=== PATIENT | female | born 1985 | race Caucasian/White ===

== ENCOUNTER 2018-02-28 12:11 | Outpatient (CLI) | payer BC, SELFPAY ==
[2018-02-28 12:38] VITALS: BMI 47.9
[2018-02-28 13:09] LABS: Hematocrit 36.6 % (37-47); Hemoglobin 11.7 g/dl (12.0-15.0); Mean Corpuscular Hgb 25.1 pg (27.0-32.0); Mean Corpuscular Volume 78.5 fL (81-99); Mean Platelet Vol. 10.5 fl (6.2-12.0); Platelet Count 231 K/mm3 (150-450); RBC Distribution Width CV 14.4 % (11.6-14.6); RBC Distribution Width SD 40.3 fl (35.1-43.9); Red Blood Count 4.66 M/mm3 (4.2-5.4); White Blood Count 11.2 K/mm3 (4.4-11.0)
[2018-02-28 13:11] LABS: Scan Indicated on CBC? Y/N NO
[2018-02-28 13:18] LABS: Partial Thromboplast Time 31.8 Seconds (24.1-36.2); Prothrombin Time (Protime)PT. 13.1 SECONDS (11.7-14.9)
[2018-02-28 13:20] LABS: AST(SGOT) 14 U/L (15-37); Alanine Aminotransfer ALT/SGPT 14 U/L (13-56); Creatinine, Serum 0.72 mg/dL (0.55-1.02); EST Glomerular Filtration Rate 99 mL/min (>60); Est Glom Filt Rate - Afr Amer 120 mL/min (>60); Uric Acid 5.8 mg/dL (2.6-6.0)
--- NOTE | 2018-02-28 13:24 | OB.TRI.NOTE ---
History of Present Illness Date of Service: 02/28/18 Was patient seen by the physician?: Yes Reason For Visit: R/O PIH Date of Service: 02/28/18 Gestational age: 32 Home Medications Medication Instructions Recorded Aspirin, Baby 81 mg PO DAILY 02/28/18 Famotidine [Pepcid] 20 mg PO 02/28/18 Labetalol [Trandate] 100 mg PO BID 02/28/18 Zoloft 50 mg PO DAILY 02/28/18 Allergies No Known Allergies Allergy (Verified 02/28/18 13:03) Physical Exam General: Alert, Oriented x3 Abdomen: Soft, Non Tender NST - FHR Rate Baby A Baseline: 140 Variability:: Moderate Accelerations:: 15 x 15 Decelerations:: None NST Reactive:: Yes FHR Category:: Category I Uterine Activity:: no ctx Impression/Plan 32yo with Chronic HTN, R/o Superimposed PRE E 1) PRE E LABS today 2) 24 hr urine protein 3) increase labetalol to 200mg BID 4) Weekly NSTs and BPP 5) Likely dc home today if labs stable 6) Celestone today and repeat in 24 hrs 7) S/Sx of pre E reviewed 8) Home BP monitoring- parameters reviewed
[2018-02-28] MEDS: Betamethasone/Betamethasone 30 MG/5 ML Vial 12 MG IM (13:35)
[2018-02-28] MEDS: Labetalol 100 MG Tablet PO (13:36)
[2018-02-28 14:30] LABS: Protein:Creat Ratio 65 mg/g CRE (0-200)
[2018-03-29 19:03] LABS: 24HR. UA Prot. Total Volume 1000 mL; Urine Protein (24 Hour) 32.8 mg/dL (<11.9)
== END 2018-02-28 15:15 | disposition home or self-care (01) ==
LOC: WPOUT 12:35 → WP 12:37
PROVIDERS: Advanced Practice Midwife; Visit Provider Obstetrics & Gynecology
DX: O10.913 Unspecified pre-existing hypertension complicating pregnancy, third trimester (principal); Z3A.32 32 weeks gestation of pregnancy
CPT/HCPCS: 96372; 36415; 59025; 59050; 82565; 82570; 84156; 84450; 84460; 84550; 85027; 85610; 85730; 99218; G0378; J0702

== ENCOUNTER 2018-03-01 14:43 | Outpatient (CLI) | payer BC, SELFPAY ==
[2018-03-01 14:56] VITALS: BMI 48.2
[2018-03-01] MEDS: Betamethasone/Betamethasone 30 MG/5 ML Vial 12 MG IM (15:09)
--- NOTE | 2018-03-02 09:07 | OB.TRI.NOTE ---
History of Present Illness Date of Service: 03/01/18 Reason For Visit: CELESTONE SHOT Home Medications Medication Instructions Recorded Aspirin, Baby 81 mg PO DAILY 02/28/18 Famotidine [Pepcid] 10 mg PO DAILY PRN PRN 02/28/18 Labetalol [Trandate] 200 mg PO BID 02/28/18 Zoloft 50 mg PO DAILY 02/28/18 Allergies No Known Allergies Allergy (Verified 02/28/18 13:03) Impression/Plan 32yo with Gestational HTN, here for second dose of celestone celestone injection given dc home
--- NOTE | 2018-03-04 07:59 | OB.TRI.NOTE ---
History of Present Illness Date of Service: 03/01/18 Reason For Visit: CELESTONE SHOT Home Medications Medication Instructions Recorded Aspirin, Baby 81 mg PO DAILY 02/28/18 Famotidine [Pepcid] 10 mg PO DAILY PRN PRN 02/28/18 Labetalol [Trandate] 200 mg PO BID 02/28/18 Zoloft 50 mg PO DAILY 02/28/18 Pediatric Multivit Comb No.42 1 each PO DAILY 03/02/18 [Flintstones] Allergies No Known Allergies Allergy (Verified 03/02/18 14:52) Impression/Plan 32yo @ 32 weeks here for Second dose of celestone. celstone given dc home
[2018-03-04 08:24] LABS: 24HR. Urine Creatinine 1.98 g/24 HR (0.70-1.90)
[2018-03-04 08:31] LABS: 24 Hour Urine Protein 133.1 mg/24HR (<150 MG/24HR); 24HR. UA Prot. Total Volume 1100 mL; Urine Protein (24 Hour) 12.1 mg/dL (<11.9)
== END 2018-03-01 15:15 | disposition home or self-care (01) ==
LOC: WPOUT 14:46 → WP 14:47
PROVIDERS: Visit Provider Obstetrics & Gynecology
DX: Z34.90 Encounter for supervision of normal pregnancy, unspecified, unspecified trimester (principal)
CPT/HCPCS: 82570; 84156; 96372; 99218; G0378; J0702

== ENCOUNTER 2018-03-02 14:40 | Outpatient (CLI) | payer BC, SELFPAY ==
[2018-03-02 14:52] VITALS: BMI 48.5
--- NOTE | 2018-03-04 07:56 | OB.TRI.NOTE ---
History of Present Illness Date of Service: 03/02/18 Was patient seen by the physician?: No Reason For Visit: DECREASED MOVERMENT Date of Service: 03/02/18 Final CHRISTIAN: 04/25/18 Gestational age: 32 Weeks and 4 Days Home Medications Medication Instructions Recorded Aspirin, Baby 81 mg PO DAILY 02/28/18 Famotidine [Pepcid] 10 mg PO DAILY PRN PRN 02/28/18 Labetalol [Trandate] 200 mg PO BID 02/28/18 Zoloft 50 mg PO DAILY 02/28/18 Pediatric Multivit Comb No.42 1 each PO DAILY 03/02/18 [Flintstones] Allergies No Known Allergies Allergy (Verified 03/02/18 14:52) NST - FHR Rate Baby A Baseline: 115 Variability:: Moderate Accelerations:: 15 x 15 Decelerations:: Variable - had two variables, remaning tracing was category 1. NST Reactive:: Yes FHR Category:: Category I Uterine Activity:: no ctx
== END 2018-03-02 17:05 | disposition home or self-care (01) ==
LOC: WPOUT 14:43 → WP 03-03 14:47
PROVIDERS: Visit Provider Obstetrics & Gynecology
DX: O36.8130 Decreased fetal movements, third trimester, not applicable or unspecified (principal); Z3A.32 32 weeks gestation of pregnancy
CPT/HCPCS: 59025; 59050; 99218; G0378

== ENCOUNTER 2018-03-30 07:30 | Inpatient (IN) | payer BC, SELFPAY ==
[2018-03-29 22:27] VITALS: BMI 49.1
--- NOTE | 2018-03-29 22:38 | OB.TRI.PN ---
Progress Notes Date of Service: 03/29/18 Progress Note: Presented to unit
[2018-03-29] MEDS: Labetalol 200 MG Tablet PO (22:43)
--- NOTE | 2018-03-29 23:28 | OB.TRI.NOTE ---
History of Present Illness Date of Service: 03/29/18 Was patient seen by the physician?: Yes Reason For Visit: PRE E Date of Service: 03/29/18 Final CHRISTIAN: 04/25/18 Final CHRISTIAN Source: US <20 weeks Gestational age: 36 Weeks and 1 Days History of Present Illness: 32 year old female at 36w1d EGA by first trimester U/S. Patient presented to office visit on 03/29/18 with elevated BP upon arrival and then normal TruBP. Patient asymptomatic and completed pre-e labs and 24hr urine. Uric acid elevated at 6.8 and 24hr urine elevated at 328. Patient notified to present to unit for evaluation due to elevated 24hr urine protein and pre-eclampsia. Denies headache, scotoma, chest pain, shortness of breath, vaginal bleeding, leakage of fluid or abdominal pain. BP at home today 133/89. Last dose of Labetalol at 0930 this am. Home Medications Medication Instructions Recorded Aspirin, Baby 81 mg PO DAILY 02/28/18 Famotidine [Pepcid] 10 mg PO DAILY PRN PRN 02/28/18 Labetalol [Trandate] 200 mg PO BID 02/28/18 Zoloft 50 mg PO DAILY 02/28/18 Pediatric Multivit Comb No.42 1 each PO DAILY 03/02/18 [Flintstones] Allergies No Known Allergies Allergy (Verified 03/29/18 22:27) Physical Exam Vitals: FHT 125, moderate variability, accels, no decels. TOCO: None General: Alert, Oriented x3, No apparent distress Cardiovascular: Regular rate, Regular Rhythm, No murmurs Lungs: Clear to auscultation, Normal air movement, No rhonchi, No wheeze Abdomen: Non Tender, - - No RUQ pain Extremities:: No edema, Deep tendon reflexes - +2/4 bilateral patellar, Other - Clonus negative NST - FHR Rate Baby A Baseline: 125 Variability:: Moderate Accelerations:: 15 x 15 Decelerations:: None NST Reactive:: Yes FHR Category:: Category I Uterine Activity:: None Impression/Plan A: 32 year old female at 36w1d with Chronic HTN Superimposed Pre-eclampsia P: 1) BP elevated upon arrival to unit, patient was late take Labetalol. Labetalol 200mg PO given once upon arrival. 2) Notified of patient status, elevated BP, elevated 24hr Protein, and patient asymptomatic. Collaboration with physician for patient management. 3) Will continue to monitor BP at this time.
[2018-03-30] MEDS: Labetalol 200 MG Tablet PO ×3 (07:58→22:35)
--- NOTE | 2018-03-30 08:04 | HP.PCM_ITS ---
- Problem List (1) Chronic hypertension affecting Status: Acute (2) Pre-eclampsia superimposed on chronic hypertension Status: Acute (3) Positive GBS test Status: Acute (4) Exposure to herpes simplex virus (HSV) Status: Acute (5) Marijuana use Status: Acute History Date of Admission: 03/30/18 Final CHRISTIAN: 04/25/18 Final CHRISTIAN Source: US <20 weeks Gestational age: 36 Weeks and 2 Days History of this : 32 year old female at 36w1d EGA by first trimester U/S. Patient presented to office visit on 03/29/18 with elevated BP upon arrival and then normal TruBP. Patient asymptomatic and completed pre-e labs and 24hr urine. Uric acid elevated at 6.8 and 24hr urine elevated at 328. Patient notified to present to unit for evaluation due to elevated 24hr urine protein and pre-eclampsia. Kept in OB observation for BP monitoring. BP remained elevated throughout the night and decision made for admission. Denies headache, scotoma, chest pain, shortness of breath, vaginal bleeding, leakage of fluid or abdominal pain. Allergies No Known Allergies Allergy (Verified 03/29/18 22:27) Current Medications Labetalol HCl (Trandate) 200 mg PO BID BONY Last Admin: 03/29/18 22:43 Dose: 200 mg Alcohol: None Drug Use: marijuana Number of Fetus(es): 1 Review of Systems Constitutional: Denies: Chills, Fever, Weight Change Eyes: Denies: Blurred vision HEENT: Denies: Head Aches Cardiovascular: Denies: Chest Pain, Palpitations Respiratory: Denies: Cough, Shortness of breath at rest, Sputum production Gastrointestinal: Denies: Abdominal Pain, Nausea, Vomiting Genitourinary: Denies: Dysuria Physical Exam Vitals: GBS positive HIV negative RPR negative HBsAG negative GC/CT negative Rubella Immune A positive, antibody negative FHT: 125, moderate variability, accels, no decels, Category 1 TOCO: Irregular contractions mild General: Alert Cardiovascular: Regular rate, Regular Rhythm, No murmurs Lungs: Clear to auscultation, No rhonchi, No wheeze Abdomen: Bowel Sounds Present, Gravid Extremities:: No edema Estimated gestational size: Appropriate for gestational size Presentation: Cephalic Cervix Dilation (cm): 0 - Mancuso bulb inserted by Station: -3 Effacement (%): 50 Assessment/Plan Active and Suspected Problems Chronic hypertension affecting (Acute) Pre-eclampsia superimposed on chronic hypertension (Acute) Positive GBS test (Acute) Exposure to herpes simplex virus (HSV) (Acute) Marijuana use (Acute) A: 32 year old female at 36w2d by first trimester U/S admitted for induction of labor. Chronic HTN with superimposed pre-eclampsia GBS positive Category 1 FHT P: 1) Admit to L&D for induction of labor with mancuso bulb and cytotec. Reviewed R/B /A/P and patient agrees with with plan of care 2) Pre-E labs and routine labs ordered 3) HTN protocol ordered, will start Magnesium Sulfate if BP 160/110 or greater 4) Labetalol 200mg PO TID for chronic HTN 5) Continue Acyclovir for HSV prophylaxis 6) Consulted for collaboration of patient care. Agrees with plan for IOL at this time and was able to discuss with patient and place mancuso bulb. Meghann Neal CNM
[2018-03-30] MEDS: miSOPROStol 25 MCG TABLET PO ×3 (09:03→17:02)
[2018-03-30] MEDS: 0.9% Normal Saline 100 ML IV.SOLN. INTRA-UTER (09:40)
[2018-03-30 09:47] LABS: Hematocrit 36.4 % (37-47); Hemoglobin 11.7 g/dl (12.0-15.0); Mean Corp Hgb Conc 32.1 g/gl (32-36); Mean Corpuscular Hgb 25.3 pg (27.0-32.0); Mean Corpuscular Volume 78.8 fL (81-99); Platelet Count 241 K/mm3 (150-450); RBC Distribution Width CV 15.7 % (11.6-14.6); RBC Distribution Width SD 43.6 fl (35.1-43.9); Red Blood Count 4.62 M/mm3 (4.2-5.4); White Blood Count 9.3 K/mm3 (4.4-11.0)
[2018-03-30 09:48] LABS: Scan Indicated on CBC? Y/N NO
[2018-03-30 09:53] LABS: Prothrombin Time (Protime)PT. 13.4 SECONDS (11.7-14.9)
[2018-03-30 09:54] LABS: Partial Thromboplast Time 30.9 Seconds (24.1-36.2)
[2018-03-30 10:01] LABS: AST(SGOT) 12 U/L (15-37); Alanine Aminotransfer ALT/SGPT 11 U/L (13-56); EST Glomerular Filtration Rate 69 mL/min (>60); Est Glom Filt Rate - Afr Amer 83 mL/min (>60); Estimated Creatinine Clearance 78.54 ml/min; Uric Acid 6.9 mg/dL (2.6-6.0)
[2018-03-30] MEDS: Magnesium Sulfate 20 GM/500 ML BAG IV (13:56)
--- NOTE | 2018-03-30 20:20 | PCM.PN.OB ---
Patient Problems: Active and Suspected Problems Chronic hypertension affecting (Acute) Pre-eclampsia superimposed on chronic hypertension (Acute) Positive GBS test (Acute) Exposure to herpes simplex virus (HSV) (Acute) Marijuana use (Acute) Subjective: Lying in bed comfortable. Magnesium Sulfate at 2gm/hr. Miranda bulb fell out. at bedside. Objective: FHT: 115, moderate variability, accels, no decels, Category 1. Intermittent minimal variability with Category 2 TOCO: Irregular contractions, mild Cervix: 4cm/60%/-3/ballotable. - Physical Exam Weight: 314 lb Body Mass Index (BMI) 49.1 Laboratory Tests Past 24 Hrs 03/30/18 03/30/18 03/30/18 09:35 09:35 09:35 WBC 9.3 RBC 4.62 Hgb 11.7 L Hct 36.4 L MCV 78.8 L MCH 25.3 L MCHC 32.1 RDW 15.7 H RDW Differential 43.6 Plt Count 241 MPV 11.0 PT 13.4 INR 1.0 APTT 30.9 Creatinine Estim Creat Clear Calc Est GFR (MDRD) Af Amer Est GFR (MDRD) Non-Af Uric Acid AST ALT Blood Type A POSITIVE Antibody Screen NEGATIVE 03/30/18 09:35 WBC RBC Hgb Hct MCV MCH MCHC RDW RDW Differential Plt Count MPV PT INR APTT Creatinine 1.00 Estim Creat Clear Calc 78.54 Est GFR (MDRD) Af Amer 83 Est GFR (MDRD) Non-Af 69 Uric Acid 6.9 H AST 12 L ALT 11 L Blood Type Antibody Screen Medical Necessity - Tobacco Use Smoking Status: Former smoker Assessment/Plan Active and Suspected Problems Chronic hypertension affecting (Acute) Pre-eclampsia superimposed on chronic hypertension (Acute) Positive GBS test (Acute) Exposure to herpes simplex virus (HSV) (Acute) Marijuana use (Acute) A:Induction of labor, progressing GBS positive Chronic HTN with superimposed Pre-eclampsia History of Marijuana use P: 1) Continue with IOL, will start Pitocin 2) Continue with Magnesium Sulfate at 2gm per hour 3) Start GBS prophylaxis 4) Discussed epidural placement for pain management due to HTN. 5) Urine tox screen due to history of marijuana use. Patient denies any recent use. 6) notified of patient status and progress. Collaboration of management for patient.
[2018-03-30] MEDS: Oxytocin 30 units/NS 500 ml 30 UNITS/500 ML IV.SOLN IV (20:46)
[2018-03-30] MEDS: Acyclovir 200 MG Capsule 400 MG PO (22:05)
[2018-03-31] MEDS: Magnesium Sulfate 20 GM/500 ML BAG IV ×3 (00:59→21:24)
[2018-03-31] MEDS: Lactated Ringers 1,000 ML 50 ML IV ×2 (01:01→21:24)
[2018-03-31] MEDS: Acetaminophen 325 MG Tablet PO ×3 (01:08→19:40)
[2018-03-31 02:52] LABS: Amphetamine Urine VISTA NEGATIVE (<1000 ng/mL); Barbiturate Urine VISTA NEGATIVE (< 200 ng/mL); Benzodiazepine Urine VISTA NEGATIVE (< 200 ng/mL); Cocaine Urine VISTA NEGATIVE (< 300 ng/mL); Ecstacy Urine VISTA POSITIVE (< 500 ng/mL); Methadone Urine VISTA NEGATIVE (< 300 ng/mL); PCP Urine VISTA NEGATIVE (< 25 ng/mL); THC Urine VISTA NEGATIVE (< 50 ng/mL); Vista UDS pH Range 6
--- NOTE | 2018-03-31 03:24 | PCM.PN.OB ---
Patient Problems: Active and Suspected Problems Chronic hypertension affecting (Acute) Pre-eclampsia superimposed on chronic hypertension (Acute) Positive GBS test (Acute) Exposure to herpes simplex virus (HSV) (Acute) Marijuana use (Acute) Subjective: Called to unit for evaluation of tracing. Patient had been up to the bathroom and placed in hands and knees. Returned onto side and had minimal variability with no accelerations. Had variable and late decelerations over 20 minute period, Pitocin off. Then returned to moderate variability with no accelerations. Lying on right side in bed upon arrival. Objective: FHT: 110, moderate variability, accelerations, with one variable decelerations, Category 2 TOCO: On right side, contractions every 3-4, mild Cervix: 4cm/60%/-3 ballotable - Physical Exam Weight: 314 lb Body Mass Index (BMI) 49.1 Laboratory Tests Past 24 Hrs 03/30/18 03/30/18 03/30/18 01:20 09:35 09:35 WBC 9.3 RBC 4.62 Hgb 11.7 L Hct 36.4 L MCV 78.8 L MCH 25.3 L MCHC 32.1 RDW 15.7 H RDW Differential 43.6 Plt Count 241 MPV 11.0 PT INR APTT Creatinine Estim Creat Clear Calc Est GFR (MDRD) Af Amer Est GFR (MDRD) Non-Af Uric Acid AST ALT Urine Opiates Screen NEGATIVE Urine Methadone Screen NEGATIVE Ur Barbiturates Screen NEGATIVE Ur Phencyclidine Scrn NEGATIVE Ur Amphetamines Screen NEGATIVE U Methamphetamin-MDMA POSITIVE H U Benzodiazepines Scrn NEGATIVE Urine Cocaine Screen NEGATIVE U Cannabinoids Screen NEGATIVE Ur Drug Screen Comment Blood Type A POSITIVE Antibody Screen NEGATIVE 03/30/18 03/30/18 09:35 09:35 WBC RBC Hgb Hct MCV MCH MCHC RDW RDW Differential Plt Count MPV PT 13.4 INR 1.0 APTT 30.9 Creatinine 1.00 Estim Creat Clear Calc 78.54 Est GFR (MDRD) Af Amer 83 Est GFR (MDRD) Non-Af 69 Uric Acid 6.9 H AST 12 L ALT 11 L Urine Opiates Screen Urine Methadone Screen Ur Barbiturates Screen Ur Phencyclidine Scrn Ur Amphetamines Screen U Methamphetamin-MDMA U Benzodiazepines Scrn Urine Cocaine Screen U Cannabinoids Screen Ur Drug Screen Comment Blood Type Antibody Screen Medical Necessity - Tobacco Use Smoking Status: Former smoker Assessment/Plan Active and Suspected Problems Chronic hypertension affecting (Acute) Pre-eclampsia superimposed on chronic hypertension (Acute) Positive GBS test (Acute) Exposure to herpes simplex virus (HSV) (Acute) Marijuana use (Acute) A: Induction of labor due to Chronic HTN with superimposed Pre-eclampsia Category 2 FHT P: 1) heart tracing reviewed and return to moderate variability with accels. Pitocin restarted at 4 mu's. 2) Positional changes 3) Epidural for pain relief when needed
--- NOTE | 2018-03-31 05:58 | PCM.PN.BLA ---
Progress Note called to evaluate FHR tracing with recurrent late decelerations- AROM performed- large amt of Clear Fluid expelled- 3-/-2 IFM and IUPC placed. Will continue to monitor FHR tracing. Will restart pitocin after 30min of category 1 FHR.
--- NOTE | 2018-03-31 06:01 | PN_ITS ---
Progress Note called to evaluate FHR tracing with recurrent late decelerations- AROM performed - large amt of Clear Fluid expelled- 3-/-2 IFM and IUPC placed. Will continue to monitor FHR tracing. Will restart pitocin after 30min of category 1 FHR.
--- NOTE | 2018-03-31 08:58 | PN.OBGYN_ITS ---
Patient Problems: Active and Suspected Problems Chronic hypertension affecting (Acute) Pre-eclampsia superimposed on chronic hypertension (Acute) Positive GBS test (Acute) Exposure to herpes simplex virus (HSV) (Acute) Marijuana use (Acute) Subjective: Patient sitting up in bed at this time, reporting comfort with contractions at this time. Patient considering getting epidural as it will help lower her blood pressure. Patient denies BLANK, denies scotoma, denies RUQ pain. Patient reports that contractions are manageable at this time. Objective: See nursing noted for vital signs, last BP = 136/81 FHT baseline 120, mild to moderate variability, + accels, mild to moderate variable decels occasionally with contractions. Alex to 100-110 with spontaneous recovery within 15-30 seconds. Ctx q 1-4 minutes, occasional periods of coupling noted SVE = Unchanged 3-4/70/-2, cervix firm and posterior - Physical Exam General: Alert, Oriented x3, Cooperative HEENT: Atraumatic, PERRLA, EOMI, Normocephalic Neck: Supple Lungs: Clear to auscultation, Normal air movement Cardiovascular: Regular rate, Regular Rhythm Abdomen: Soft, Non Tender, Gravid, Appropriate for Gestational Age Extremities: No edema, Capillary Refill Less than 3 Seconds, No Calf Tenderness , Edema - +1/+1 non-pitting, Peripheral Pulses Normal Skin: No rashes, No breakdown Musculoskeletal: No Tenderness to Palpation of Joints or Extremities Neurological: Cranial nerves II-XII grossly intact, Deep Tendon Reflexes 2+/4 and Symmetrical - Negative clonus noted by this provider Psych/Mental Status: Normal Affect, Appropriate, Alert and oriented to time, place, person, mood and affect Weight: 314 lb Body Mass Index (BMI) 49.1 Laboratory Tests Past 24 Hrs 03/30/18 03/30/18 03/30/18 01:20 09:35 09:35 WBC 9.3 RBC 4.62 Hgb 11.7 L Hct 36.4 L MCV 78.8 L MCH 25.3 L MCHC 32.1 RDW 15.7 H RDW Differential 43.6 Plt Count 241 MPV 11.0 PT INR APTT Creatinine Estim Creat Clear Calc Est GFR (MDRD) Af Amer Est GFR (MDRD) Non-Af Uric Acid AST ALT Urine Opiates Screen NEGATIVE Urine Methadone Screen NEGATIVE Ur Barbiturates Screen NEGATIVE Ur Phencyclidine Scrn NEGATIVE Ur Amphetamines Screen NEGATIVE U Methamphetamin-MDMA POSITIVE H U Benzodiazepines Scrn NEGATIVE Urine Cocaine Screen NEGATIVE U Cannabinoids Screen NEGATIVE Ur Drug Screen Comment Blood Type A POSITIVE Antibody Screen NEGATIVE 03/30/18 03/30/18 09:35 09:35 WBC RBC Hgb Hct MCV MCH MCHC RDW RDW Differential Plt Count MPV PT 13.4 INR 1.0 APTT 30.9 Creatinine 1.00 Estim Creat Clear Calc 78.54 Est GFR (MDRD) Af Amer 83 Est GFR (MDRD) Non-Af 69 Uric Acid 6.9 H AST 12 L ALT 11 L Urine Opiates Screen Urine Methadone Screen Ur Barbiturates Screen Ur Phencyclidine Scrn Ur Amphetamines Screen U Methamphetamin-MDMA U Benzodiazepines Scrn Urine Cocaine Screen U Cannabinoids Screen Ur Drug Screen Comment Blood Type Antibody Screen Medical Necessity - Tobacco Use Smoking Status: Former smoker Assessment/Plan Active and Suspected Problems Chronic hypertension affecting (Acute) Pre-eclampsia superimposed on chronic hypertension (Acute) Positive GBS test (Acute) Exposure to herpes simplex virus (HSV) (Acute) Marijuana use (Acute) A: 32 y/o @ 36.6wks, Pre-eclampsia with Severe features, Category II FHT P: 1) + MDMA/meth result on tox screen - likely d/t patient being on Wellbutrin will test baby after delivery 2) Continue present orders at this time, IV pitocin titration per protocol 3) Consider amnioinfusion if persistent, repetitive variable decels noted. Tita BRUMFIELD
[2018-03-31] MEDS: Sertraline 50 MG Tablet PO (09:07)
[2018-03-31] MEDS: Acyclovir 200 MG Capsule 400 MG PO (09:07)
[2018-03-31] MEDS: Labetalol 200 MG Tablet PO ×2 (09:23→14:59)
[2018-03-31] MEDS: Ondansetron 4 MG/2 ML Vial IV ×3 (10:13→22:04)
[2018-03-31] MEDS: Amnioinfusion- 0.9% NS 1,000 ML IV.SOLN. 300 ML INTRA-UTER (11:03)
[2018-03-31] MEDS: fentaNYL-bupivacaine (epidural) 100 ML BAG EPIDURAL ×3 (11:35→20:45)
--- NOTE | 2018-03-31 13:30 | PCM.PN.OB ---
Patient Problems: Active and Suspected Problems Chronic hypertension affecting (Acute) Pre-eclampsia superimposed on chronic hypertension (Acute) Positive GBS test (Acute) Exposure to herpes simplex virus (HSV) (Acute) Marijuana use (Acute) Subjective: Patient sleeping deeply at this time, did not easily rouse when this provider entered room. Patient had epidural placed without difficulty and is comfortable. Objective: See nursing note for vital signs - last blood pressure 140/70 FHT baseline 120, mild to moderate variability, few accels, few mild variable decels occuring after ctx. Ctx q 5-8 minutes, palpate moderately strong SVE - not assess at this time, patient sleeping and not easily roused. - Physical Exam General: Alert, Oriented x3, Cooperative HEENT: Atraumatic, Normocephalic Neck: Supple Lungs: Clear to auscultation, Normal air movement Cardiovascular: Regular rate, Regular Rhythm, No murmurs Abdomen: Bowel Sounds Present, Soft, Non Tender Extremities: No edema, Capillary Refill Less than 3 Seconds, No Calf Tenderness Skin: No rashes, No breakdown Musculoskeletal: No Tenderness to Palpation of Joints or Extremities Neurological: Cranial nerves II-XII grossly intact Psych/Mental Status: Normal Affect, Appropriate, Alert and oriented to time, place, person, mood and affect Weight: 314 lb Body Mass Index (BMI) 49.1 Laboratory Tests Past 24 Hrs 03/30/18 01:20 Urine Opiates Screen NEGATIVE Urine Methadone Screen NEGATIVE Ur Barbiturates Screen NEGATIVE Ur Phencyclidine Scrn NEGATIVE Ur Amphetamines Screen NEGATIVE U Methamphetamin-MDMA POSITIVE H U Benzodiazepines Scrn NEGATIVE Urine Cocaine Screen NEGATIVE U Cannabinoids Screen NEGATIVE Ur Drug Screen Comment Medical Necessity - Tobacco Use Smoking Status: Former smoker Assessment/Plan Active and Suspected Problems Chronic hypertension affecting (Acute) Pre-eclampsia superimposed on chronic hypertension (Acute) Positive GBS test (Acute) Exposure to herpes simplex virus (HSV) (Acute) Marijuana use (Acute) A: 32 y/o @ 36.6 weeks, Pre-eclampsia with Severe Features, Pitocin IOL, Category II FHT P: 1) Dr. Neri CASTLE appraised of situation - pitocin to be restarted at this time 2) Urinary mancuso catheter to be placed 3) Continue Pitocin titration as directed until adequate ctx/cervical change 4) Encourage position changes Tita MUÑIZ
--- NOTE | 2018-03-31 18:00 | PN.OBGYN_ITS ---
Patient Problems: Active and Suspected Problems Chronic hypertension affecting (Acute) Pre-eclampsia superimposed on chronic hypertension (Acute) Positive GBS test (Acute) Exposure to herpes simplex virus (HSV) (Acute) Marijuana use (Acute) Subjective: Patient laying Rt. Lateral at this time. Patient reports comfort since epidural was placed. Amnioinfusion continues to infuse at this time. Pitocin has been on and off throughout afternoon due to intolerance to contractions. Patient' s remains at bedside providing support. Objective: Patient remains normotensive, VSS, afebrile - see nursing note for vital signs FHT baseline 110, minimum varability, occasional mild variable decels and rare late decels noted. Decels resolved with position changes. Ctx q 3-4 minutes, MVU = 185 SVE = deferred, at last exam by Kiera He MD at 2:30pm cervix unchanged and was 4/70/-2 and firm - Physical Exam General: Alert, Oriented x3, Cooperative HEENT: Atraumatic, Normocephalic Neck: Supple Lungs: Clear to auscultation, Normal air movement Cardiovascular: Regular rate, Regular Rhythm, No murmurs Abdomen: Soft, Non Tender Extremities: No edema, Capillary Refill Less than 3 Seconds, No Calf Tenderness Skin: No rashes, No breakdown Musculoskeletal: No Tenderness to Palpation of Joints or Extremities Neurological: Cranial nerves II-XII grossly intact Psych/Mental Status: Normal Affect, Appropriate, Alert and oriented to time, place, person, mood and affect Weight: 314 lb Body Mass Index (BMI) 49.1 Laboratory Tests Past 24 Hrs 03/30/18 01:20 Urine Opiates Screen NEGATIVE Urine Methadone Screen NEGATIVE Ur Barbiturates Screen NEGATIVE Ur Phencyclidine Scrn NEGATIVE Ur Amphetamines Screen NEGATIVE U Methamphetamin-MDMA POSITIVE H U Benzodiazepines Scrn NEGATIVE Urine Cocaine Screen NEGATIVE U Cannabinoids Screen NEGATIVE Ur Drug Screen Comment Medical Necessity - Tobacco Use Smoking Status: Former smoker Assessment/Plan Active and Suspected Problems Chronic hypertension affecting (Acute) Pre-eclampsia superimposed on chronic hypertension (Acute) Positive GBS test (Acute) Exposure to herpes simplex virus (HSV) (Acute) Marijuana use (Acute) 32 y/o @ 36.6 weeks, Pre-eclampsia with Severe Features, Pitocin IOL, Category II FHT P: 1) Continue titration of pitocin as needed 2) consider stopping amnioinfusion if variable decels resolve 3) Reassess SVE in one hour or PRN to assess for cervical change 4) Dr. He appraised of patient status Tita Potter WELDING MACHINE OPERATOR/TENDER-CNM
--- NOTE | 2018-03-31 21:16 | PCM.PN.BLA ---
Progress Note Addendum: Phone call to collaborating physician Dr. Neri CASLTE to update her on patient status. Cervix now 480/-2, midposition and moderately firm with continued Category II FHT. Pitocin is currently at 7 milliunits. At this time, will continue with titration of pitocin with hope of cervical change. If minimal cervical change noted in AM, will likely progress to LTCS. At this time, Dr. Neri CASTLE recommends CBC bloodwork to be drawn to reassess patient's platelet count. Will reassess cervix PRN. Tita MUÑIZ
--- NOTE | 2018-03-31 21:20 | PN_ITS ---
Progress Note Addendum: Phone call to collaborating physician Dr. Neri CASTLE to update her on patient status. Cervix now 480/-2, midposition and moderately firm with continued Category II FHT. Pitocin is currently at 7 milliunits. At this time, will continue with titration of pitocin with hope of cervical change. If minimal cervical change noted in AM, will likely progress to LTCS. At this time , Dr. Neri CASTLE recommends CBC bloodwork to be drawn to reassess patient's platelet count. Will reassess cervix PRN. Tita MUÑIZ
[2018-03-31 21:49] LABS: Hematocrit 36.4 % (37-47); Hemoglobin 11.9 g/dl (12.0-15.0); Mean Corp Hgb Conc 32.7 g/gl (32-36); Mean Corpuscular Hgb 25.5 pg (27.0-32.0); Mean Corpuscular Volume 78.1 fL (81-99); Platelet Count 229 K/mm3 (150-450); RBC Distribution Width CV 15.3 % (11.6-14.6); RBC Distribution Width SD 43.1 fl (35.1-43.9); Red Blood Count 4.66 M/mm3 (4.2-5.4); Scan Indicated on CBC? Y/N NO; White Blood Count 13.5 K/mm3 (4.4-11.0)
[2018-03-31] MEDS: Sodium Citrate/Citric Acid 30 ML UDC PO (22:20)
--- NOTE | 2018-03-31 22:20 | PCM.PN.BLA ---
Progress Note Addendum: Patient resting in right side-lying position when spontaneous prolonged variable decels were noted. Decels lasted 30-90 seconds with deepest aaron to 60. Pitocin discontinued and shut off, patient moved to hands and knees positioning. Cervical exam done and cervix unchanged. Dr. He contacted and updated, decision made to progress with LTCS for intolerance to labor. Transfer to medical management of care. Tita MUÑIZ
[2018-03-31] MEDS: Oxytocin 30 units/NS 500 ml 30 UNITS/500 ML IV.SOLN 167 UNITS IV (23:16)
[2018-04-01] VITALS (33 sets, daily range): BP systolic 121–151; BP diastolic 65–92; PULSE 70–101; RESP 16–18; TEMP 36.1–37.4; O2SAT 94–99
--- NOTE | 2018-04-01 | PCM.OPRPT ---
Report of Operation Date of Procedure: 04/01/18 Pre-Operative Diagnosis: preeclampsia with severe features, 37 weeks, category 2 FHTs remote from delivery Post-Operative Diagnosis: same Surgery/Procedure Performed:: Primary LTCS Description of Surgical Findings:: normal uterus, tubes and ovaries mill machinist: Jahaira Larry Type of Anesthesia:: Epidural Anesthesiologist: Saroj Hazel Special Medications: magnesium Specimen's removed: placenta Drains: mancuso Estimated Blood Loss (mL): 800 Description of Procedure: The patient was taken to the operating room. She was prepped and draped in the dorsal supine position with a leftward tilt. A Pfannenstiel skin incision was made approximately 2 cm above the symphysis pubis and carried through to underlying layer fascia with the scalpel. The fascia was incised incised in the midline and extended laterally with the Edward scissors. The fascia was dissected off the rectus muscles with blunt and sharp dissection. The rectus muscles were in the midline and the peritoneum was entered bluntly. The peritoneal incision was stretched and the bladder blade was placed. The uterine incision was made in a low transverse fashion with the scalpel and extended superiorly and inferiorly with blunt dissection. The amniotic membranes were ruptured bluntly and clear amniotic fluid returned. The infant's head was brought to the incision in the flexed position and delivered without difficulty. The tight nuchal cord ?2 was reduced. The remainder of the infant was delivered with gentle traction and fundal pressure in the standard fashion. The mouth and nares were bulb suctioned. The cord was clamped and cut as the was stimulated. Cord clamping was delayed approximately 30 seconds and then it was clamped and cut and the was handed off. The placenta was delivered with fundal massage and gentle traction in the standard fashion. The uterus was exteriorized and cleared of all clots and debris. . The uterine incision was closed with #1 Vicryl in a running locked fashion. A second layer of the same suture was used in an imbricating fashion and the incision was examined for hemostasis. The surgical teams outer gloves were changed. The uterus was placed back into the peritoneal cavity and hemostasis was assured. The rectus muscles were examined and any bleeding was Bovie cauterized. The parietal peritoneum and rectus muscles were closed en bloc with an 0 Vicryl running suture.. The rectus fascia was examined and the bleeding was Bovie cauterized and the rectus fascia was closed with #1 PDS suture in a running standard fashion. The subcutaneous tissue was examining and any bleeding was Bovie cauterized. The subcutaneous tissue was reapproximated with 3-0 Vicryl suture. The skin was closed in a subcuticular fashion by me. I performed the entire procedure with assistance.. All sponge, lap, and needle counts were correct. The patient was taken to her room for recovery in a stable condition. Grafts/Implants Used: none - Complications none - Admit VTE Documentation VTE Present on Admission: No VTE Mechan Device Prophylaxis: SCD's VTE Pharm Prophylaxis ordered?: Yes
--- NOTE | 2018-04-01 00:05 | OP.PCM_ITS ---
Report of Operation Date of Procedure: 04/01/18 Pre-Operative Diagnosis: preeclampsia with severe features, 37 weeks, category 2 FHTs remote from delivery Post-Operative Diagnosis: same Surgery/Procedure Performed:: Primary LTCS Description of Surgical Findings:: normal uterus, tubes and ovaries hand ii tube bender: Jahaira Larry Type of Anesthesia:: Epidural Anesthesiologist: Saroj Hazel Special Medications: magnesium Specimen's removed: placenta Drains: mancuso Estimated Blood Loss (mL): 800 Description of Procedure: The patient was taken to the operating room. She was prepped and draped in the dorsal supine position with a leftward tilt. A Pfannenstiel skin incision was made approximately 2 cm above the symphysis pubis and carried through to underlying layer fascia with the scalpel. The fascia was incised incised in the midline and extended laterally with the Edward scissors. The fascia was dissected off the rectus muscles with blunt and sharp dissection. The rectus muscles were in the midline and the peritoneum was entered bluntly. The peritoneal incision was stretched and the bladder blade was placed. The uterine incision was made in a low transverse fashion with the scalpel and extended superiorly and inferiorly with blunt dissection. The amniotic membranes were ruptured bluntly and clear amniotic fluid returned. The infant' s head was brought to the incision in the flexed position and delivered without difficulty. The tight nuchal cord ?2 was reduced. The remainder of the infant was delivered with gentle traction and fundal pressure in the standard fashion. The mouth and nares were bulb suctioned. The cord was clamped and cut as the infant was stimulated. Cord clamping was delayed approximately 30 seconds and then it was clamped and cut and the was handed off. The placenta was delivered with fundal massage and gentle traction in the standard fashion. The uterus was exteriorized and cleared of all clots and debris. . The uterine incision was closed with #1 Vicryl in a running locked fashion. A second layer of the same suture was used in an imbricating fashion and the incision was examined for hemostasis. The surgical teams outer gloves were changed. The uterus was placed back into the peritoneal cavity and hemostasis was assured. The rectus muscles were examined and any bleeding was Bovie cauterized. The parietal peritoneum and rectus muscles were closed en bloc with an 0 Vicryl running suture.. The rectus fascia was examined and the bleeding was Bovie cauterized and the rectus fascia was closed with #1 PDS suture in a running standard fashion. The subcutaneous tissue was examining and any bleeding was Bovie cauterized. The subcutaneous tissue was reapproximated with 3-0 Vicryl suture. The skin was closed in a subcuticular fashion by me. I performed the entire procedure with assistance.. All sponge, lap, and needle counts were correct. The patient was taken to her room for recovery in a stable condition. Grafts/Implants Used: none - Complications none - Admit VTE Documentation VTE Present on Admission: No VTE Mechan Device Prophylaxis: SCD's VTE Pharm Prophylaxis ordered?: Yes
--- NOTE | 2018-04-01 02:52 | NURSING ---
epidural cath d/c'd with blue tip intact
[2018-04-01 06:22] LABS: Hemoglobin 10.4 g/dl (12.0-15.0); Mean Corp Hgb Conc 32.5 g/gl (32-36); Mean Corpuscular Hgb 25.1 pg (27.0-32.0); Mean Corpuscular Volume 77.1 fL (81-99); Mean Platelet Vol. 9.9 fl (6.2-12.0); Platelet Count 209 K/mm3 (150-450); RBC Distribution Width CV 15.3 % (11.6-14.6); RBC Distribution Width SD 42.9 fl (35.1-43.9); Red Blood Count 4.15 M/mm3 (4.2-5.4); White Blood Count 13.4 K/mm3 (4.4-11.0)
[2018-04-01 06:24] LABS: Scan Indicated on CBC? Y/N NO
--- NOTE | 2018-04-01 07:29 | PN.OBGYN_ITS ---
Patient Problems: Active and Suspected Problems Chronic hypertension affecting (Acute) Pre-eclampsia superimposed on chronic hypertension (Acute) Positive GBS test (Acute) Exposure to herpes simplex virus (HSV) (Acute) Marijuana use (Acute) Subjective: Patient sitting up in bed, using incentive respirometer at this time. Patient reports she has been able to rest well throughout night. Assawoman currently in nursery for evaluation of hypoglycemia. Patient has been able to pump colostrum at this time without difficulty. Objective: Nipples without cracks or blisters Dressing dry and intact SCDs in place at this time Urinary mancuso draining clear yellow urine - Physical Exam General: Alert, Oriented x3, Cooperative HEENT: Atraumatic, Normocephalic Neck: Supple Lungs: Clear to auscultation, Normal air movement Cardiovascular: Regular rate, No murmurs Abdomen: Soft, Non Tender Extremities: No edema, Capillary Refill Less than 3 Seconds, No Calf Tenderness , Peripheral Pulses Normal Skin: No rashes, No breakdown Musculoskeletal: No Tenderness to Palpation of Joints or Extremities Neurological: Cranial nerves II-XII grossly intact, Deep Tendon Reflexes 2+/4 and Symmetrical Psych/Mental Status: Normal Affect, Appropriate, Alert and oriented to time, place, person, mood and affect Vital Signs Temp Pulse Resp BP Pulse Ox 97.5 F L 83 18 138/66 H 97 04/01/18 07:00 04/01/18 07:00 04/01/18 07:00 04/01/18 07:00 04/01/18 07:00 Oxygen Delivery Method Room Air Weight: 314 lb Body Mass Index (BMI) 49.1 Intake and Output for Last 24 Hours 03/30/18 03/31/18 04/01/18 23:59 23:59 23:59 Intake Total 296 / 296 1634 / 1634 Output Total 200 / 200 1692 / 1692 Balance 96 / 96 -58 / -58 Laboratory Tests Past 24 Hrs 03/31/18 04/01/18 21:43 06:10 WBC 13.5 H 13.4 H RBC 4.66 4.15 L Hgb 11.9 L 10.4 L Hct 36.4 L 32.0 L MCV 78.1 L 77.1 L MCH 25.5 L 25.1 L MCHC 32.7 32.5 RDW 15.3 H 15.3 H RDW Differential 43.1 42.9 Plt Count 229 209 MPV 10.0 9.9 Medical Necessity - Tobacco Use Smoking Status: Former smoker Assessment/Plan Active and Suspected Problems Chronic hypertension affecting (Acute) Pre-eclampsia superimposed on chronic hypertension (Acute) Positive GBS test (Acute) Exposure to herpes simplex virus (HSV) (Acute) Marijuana use (Acute) A: 32 y/o G1, P1 now s/p LTCS for Failed IOL for Pre-Eclampsia with Severe Features and Intolerance to Labor, POD #1 P: 1) Continue PP orders at this time 2) Encourage continued pumping of colostrum to stimulate milk supply 3) Continue to monitor BP, continue IV Magnesium Sulfate as ordered at this time Tita Potter CNM
[2018-04-01] MEDS: Magnesium Sulfate 20 GM/500 ML BAG IV ×2 (07:51→17:51)
[2018-04-01] MEDS: Senna/Docusate Sodium 1 Tablet PO ×2 (13:44→21:43)
--- NOTE | 2018-04-01 16:10 | CASEMGMT ---
Social Work Assessment Labor and Delivery Unit Date of Referral: 03/31/2018 Time of Referral: 814 Date of Intervention: 04/01/2018 Time of Intervention: 1600 Referred by: Dr. Mable He Reason for Referral: Marijuana use in . Per nursing staff, infant admitted to the [facility] after delivery. History obtained from: Patient/Mother of baby (MOB) and medical record. Educated MOB that this public relations writer is the social sciences instructor for [facility] labor and delivery unit and for continuity of care of families on the SC[facility], this public relations writer also provides social work services to the [facility]. Educated MOB that information form assessment today will also be used in the baby's [place] Chart. MOB voiced understanding that information will be used in two separate electronic medical records Household composition: MOB and father of baby (FOB) Keo Mai. Also in the home are the family's 2 dogs and 3 cats. MOB plans to take Delmer Mai to this home. Patient's parent/guardian status: MOB is 32 and FOB is 35 years old. Parents have been since 08-30-17 but together for 9 years now. MOB denies any form of abuse in relationship with FOB. Medical History: MOB is G1, P0 to 1 after delivering Delmer. care started at 12 weeks gestation in [place], but MOB reports has 2 visits [address] [place] [address] Conrad. MOB reports was not real happy with this doctor so switched to [place]. MOB care attendance good once transferring care to [place]. MOB with Preeclampsia and was treated with labetalol. born at 36.3 weeks gestation, weighing 4 pounds 12 ounces at . Apgars 8 and 9 at 1 and 5 minutes of life. Educational Status: MOB has an associates degree in photography. FOB's highest level of education is a bachelors degree. Both parents able to read, write, and to understand what is read. Financial Status: [employer]angel works 2nd shift at [employer]. 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 Supplies: MOB reports to have bassinet, crib, clothing, diapers, wipes, car seat, and planning to breast feed. 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 Programs/Agencies Involved: No agency involvement at this time. MOB does express interest regarding WIC and [employer] [facility]. Behavioral Health Issues: Mental Health- MOB reports history of depression and anxiety diagnosed at age 14. MOB reports has gone through counseling before and has learned skills for management of emotions, such as journaling, exercise, and meditation. MOB reports was treated with Prozac and Xanax which worked well. MOB reports when found out was was switched to Zoloft. MOB reports original OBGYN then had MOB go off of the Zoloft, for reasons MOB is uncertain about. MOB reports then around December was having increase of emotional lability so was placed back on Zoloft by current OBGYN providers. MOB reports has felt great relief in symptoms since going back onto Zoloft. MOD denies any thoughts, plans, or intent for suicide in several years. MOB denies any such thoughts during . Substance Use History - MOB reports history of marijuana usage which MOB did use to help anxiety as well as nausea. MOB reports has not used since first trimester, but also when social sciences instructor educated to meconium drug screen pending, MOB indicated it could be a possibility of marijuana to be present in the baby's system. MOB reports that took 1mg of xanax, from own prescription, once during this , and this was before being restarted on Zoloft. MOB denies other drug use including heroin, cocaine, methamphetamines, or other narcotic drugs; denies alcohol use. Denies tobacco use. Drug Screens - MOB with a positive drug screen for marijuana 12-15-17. MOB then had a drug screen at delivery negative for marijuana, but positive for methamphetamine/MDMA. MOB denies any use of this illicit drugs, and states has never tried anything more than marijuana. Per conversation with medical staff there have been studies showing that labetalol causing false positives in women for methamphetamines/MDMA. MOB was on labetalol during . There is a pending send out drug screen for MOB to determine actual source of the MDMA present in MOB at delivery. Baby's urine drug screen is negative for any substances. Meconium is pending. Family/Social Stressors: No reported or identified stressors at this time. MOB does have depression and anxiety, but currently treated with Zoloft and states this has been helping. Support Systems: MOB reports FOB is both practical and emotional support to MOB. MOB reports both MOB's and FOB's parents are helpful. MOB reports support system is adequate. Assessment: MOB reports to feel connected to baby at this time, to be happy to have the baby, but also states that has not been overwhelmed being from baby at this point. MOB reports to know that has own healing to do right now and knows that baby is being well cared for in the nursery. MOB continues describing that when sits with baby and holds baby that feels positive emotions and happiness. MOB reports to have adequate support for self and baby at home going. MOB reports to have needed supplies. MOB reports plan to stay on antidepressant medication in the period, and seemed interested and engaged in social sciences instructor education on this topic. MOB reports receptivity to having list of resources for counseling should MOB need additional support down the road. MOB able to give appropriate responses on shaken baby and safe sleeping. MOB accepted social work discussion on possibility of children services involvement due to maternal drug use in , and especially if baby's drug screen comes back positive for anything. MOB accepted information without issue. Plan Will continue to follow and assist during hospital stay. ammonia refrigeration worker will be following back up with MOB to provide community resources. -MERCEDES Pollock, MEDIA LAW FACULTY MEMBER
[2018-04-01] MEDS: Lactated Ringers 1,000 ML 100 ML IV (16:57)
[2018-04-01] MEDS: Sertraline 50 MG Tablet PO (21:43)
[2018-04-01] MEDS: Acetaminophen 500 MG Tablet 1000 MG PO (21:43)
[2018-04-01] MEDS: 0.9% Saline Lock 10 ML Syringe IV (23:16)
[2018-04-02] MEDS: oxyCODONE 5 MG Tablet PO ×2 (00:31→20:54)
[2018-04-02] MEDS: Naproxen 250 MG Tablet PO ×3 (01:59→17:40)
[2018-04-02 03:16] VITALS: BP 150/84; PULSE 98; RESP 16; TEMP 36.4; O2SAT 97
--- NOTE | 2018-04-02 08:26 | PCM.PN.BLA ---
Progress Note Seen and agree. 2+ edema. Bandage clean, dry and intact. Monitor BPs. Add procardia and monitor.
--- NOTE | 2018-04-02 08:29 | PN.OBGYN_ITS ---
Patient Problems: Active and Suspected Problems Chronic hypertension affecting (Acute) Pre-eclampsia superimposed on chronic hypertension (Acute) Positive GBS test (Acute) Exposure to herpes simplex virus (HSV) (Acute) Marijuana use (Acute) Subjective: + flatus, average lochia, pain well controlled, claudia. po. Denies BLANK or visual changes - Physical Exam General: Alert, Cooperative, No apparent distress Abdomen: Soft, Distended - moderately, Tender - appropriately Extremities: Edema - 2+, - - 2+ Dtrs, one beat clonus Vital Signs Temp Pulse Resp BP Pulse Ox 97.6 F L 98 16 150/84 H 97 04/02/18 03:16 04/02/18 03:16 04/02/18 03:16 04/02/18 03:16 04/02/18 03:16 Oxygen Delivery Method Room Air Weight: 142.428 kg Body Mass Index (BMI) 49.1 Intake and Output for Last 24 Hours 03/31/18 04/01/18 04/02/18 23:59 23:59 23:59 Intake Total 296 / 296 3664 / 3664 Output Total 200 / 200 4104 / 4104 300 / 300 Balance 96 / 96 -440 / -440 -300 / -300 Laboratory Tests Past 24 Hrs 04/01/18 10:35 Miscellaneous Test Pending Medical Necessity - Tobacco Use Smoking Status: Former smoker Assessment/Plan Active and Suspected Problems Chronic hypertension affecting (Acute) Pre-eclampsia superimposed on chronic hypertension (Acute) Positive GBS test (Acute) Exposure to herpes simplex virus (HSV) (Acute) Marijuana use (Acute) POD#2 chronic htn w/ preeclampsia superimposed, start nifedipine ambulate infant in [facility] doing well
[2018-04-02 09:30] VITALS: BP 150/79; PULSE 79; RESP 18; TEMP 36.4; O2SAT 99
[2018-04-02] MEDS: Sertraline 50 MG Tablet PO (09:47)
[2018-04-02] MEDS: NIFEdipine 60 MG Tablet PO (09:47)
[2018-04-02] MEDS: Senna/Docusate Sodium 1 Tablet PO (09:47)
[2018-04-02 13:05] VITALS: BP 148/73; PULSE 91; RESP 20; TEMP 36.8; O2SAT 98
[2018-04-02] MEDS: Acetaminophen 500 MG Tablet 1000 MG PO (16:11)
[2018-04-02 18:00] VITALS: BP 153/67; PULSE 88; RESP 20; TEMP 36.7; O2SAT 98
[2018-04-02 19:40] VITALS: BP 156/78; PULSE 100; RESP 16; TEMP 36.4; O2SAT 96
[2018-04-02] MEDS: Labetalol 100 MG Tablet PO (20:56)
[2018-04-02] MEDS: Docusate Sodium 100 MG Capsule PO (21:40)
[2018-04-02 21:42] VITALS: BP 152/84
[2018-04-03] VITALS (7 sets, daily range): BP systolic 131–157; BP diastolic 66–79; PULSE 91–101; RESP 18–20; TEMP 36.3–36.6; O2SAT 96–99
[2018-04-03] MEDS: oxyCODONE 5 MG Tablet PO ×4 (01:56→21:38)
--- NOTE | 2018-04-03 04:37 | NURSING ---
pt called RN and requested BP to be checked. pt just returned to bed from visiting baby in [facility] and ambulating halls. pt reported left temporal headache / and stated i can feel my pulse throughout my whole body and to my left jew. pt denies visual disturbance with headache, denies epigastric pain, no clonus, denies nausea, reflexes +2, and edema to BLE +2. pt offered tylenol or oxyir for headache. pt declined, pt states she is going to try to rest for 15 mins prior to next feed for baby.
[2018-04-03] MEDS: Labetalol 100 MG Tablet PO ×3 (05:30→21:32)
[2018-04-03] MEDS: Docusate Sodium 100 MG Capsule PO ×2 (09:51→21:31)
[2018-04-03] MEDS: NIFEdipine 60 MG Tablet PO (09:52)
[2018-04-03] MEDS: Sertraline 50 MG Tablet PO (09:52)
[2018-04-03 10:28] LABS: Hematocrit 30.3 % (37-47); Hemoglobin 9.5 g/dl (12.0-15.0); Mean Corp Hgb Conc 31.4 g/gl (32-36); Mean Corpuscular Volume 79.7 fL (81-99); Mean Platelet Vol. 9.8 fl (6.2-12.0); Platelet Count 218 K/mm3 (150-450); RBC Distribution Width CV 16.1 % (11.6-14.6); RBC Distribution Width SD 46.5 fl (35.1-43.9); White Blood Count 8.2 K/mm3 (4.4-11.0)
[2018-04-03 10:29] LABS: Scan Indicated on CBC? Y/N NO
[2018-04-03 10:50] LABS: ALB/GLOB Ratio 0.5 RATIO (0.9-2.4); AST(SGOT) 32 U/L (15-37); Alanine Aminotransfer ALT/SGPT 21 U/L (13-56); Albumin, Serum 2.2 g/dL (3.2-5.0); Alkaline Phosphatase 95 U/L (45-117); Anion Gap 8 (5-15); BUN 14 mg/dL (7-18); BUN/Creat Ratio 22.3 RATIO (10-20); Calcium,Total 8.2 mg/dL (8.5-10.1); Chloride 108 mmol/L (98-107); Creatinine, Serum 0.63 mg/dL (0.55-1.02); EST Glomerular Filtration Rate 116 mL/min (>60); Est Glom Filt Rate - Afr Amer 141 mL/min (>60); Estimated Creatinine Clearance 68.85 ml/min; Globulin 4.2 g/dL (2.2-4.2); Glucose 82 mg/dL (74-106); Potassium 4.2 mmol/L (3.5-5.1); Protein, Total 6.4 g/dL (6.4-8.2); Sodium Level 141 mmol/L (136-145)
--- NOTE | 2018-04-03 12:23 | PCM.PN.OB ---
Patient Problems: Active and Suspected Problems Chronic hypertension affecting (Acute) Pre-eclampsia superimposed on chronic hypertension (Acute) Positive GBS test (Acute) Exposure to herpes simplex virus (HSV) (Acute) Marijuana use (Acute) Subjective: Pain well controlled, average lochia. + BM, BLANK improved after nap. No visual changes - Physical Exam General: Alert, Cooperative, No apparent distress Abdomen: Soft, Non-Distended, Tender - appropriately Extremities: Edema - 2+ Skin: Incision - bandage w/ some sanguinous drainage, no skin erythema Vital Signs Temp Pulse Resp BP Pulse Ox 97.6 F L 91 20 H 145/72 H 99 04/03/18 10:05 04/03/18 10:05 04/03/18 10:05 04/03/18 12:08 04/03/18 10:05 Oxygen Delivery Method Room Air Weight: [Today] 2.948 kg Weight: [] 34.019 kg Weight: 142.428 kg Body Mass Index (BMI) 49.1 Intake and Output for Last 24 Hours 04/01/18 04/02/18 04/03/18 23:59 23:59 23:59 Intake Total 3664 / 3664 Output Total 4104 / 4104 900 / 900 Balance -440 / -440 -900 / -900 Laboratory Tests Past 24 Hrs 04/03/18 04/03/18 10:04 10:04 WBC 8.2 RBC 3.80 L Hgb 9.5 L Hct 30.3 L MCV 79.7 L MCH 25.0 L MCHC 31.4 L RDW 16.1 H RDW Differential 46.5 H Plt Count 218 MPV 9.8 Sodium 141 Potassium 4.2 Chloride 108 H Carbon Dioxide 25.0 Anion Gap 8 BUN 14 Creatinine 0.63 Estim Creat Clear Calc 68.85 Est GFR (MDRD) Af Amer 141 Est GFR (MDRD) Non-Af 116 BUN/Creatinine Ratio 22.3 H Glucose 82 Calcium 8.2 L Total Bilirubin 0.20 AST 32 ALT 21 Alkaline Phosphatase 95 Total Protein 6.4 Albumin 2.2 L Globulin 4.2 Albumin/Globulin Ratio 0.5 L Medical Necessity - Tobacco Use Smoking Status: Former smoker Assessment/Plan Active and Suspected Problems Chronic hypertension affecting (Acute) Pre-eclampsia superimposed on chronic hypertension (Acute) Positive GBS test (Acute) Exposure to herpes simplex virus (HSV) (Acute) Marijuana use (Acute) POD#3 doing well recheck preeclampsia labs added labetalol monitor BPs cont. pumping breast milk, doing well
[2018-04-04 00:10] VITALS: BP 140/64
[2018-04-04 02:40] VITALS: BP 147/77; PULSE 92; RESP 16; TEMP 36.4; O2SAT 98
[2018-04-04] MEDS: NIFEdipine 60 MG Tablet PO (08:19)
[2018-04-04 09:20] VITALS: BP 142/88; PULSE 107
[2018-04-04] MEDS: Labetalol 100 MG Tablet PO (09:32)
[2018-04-04] MEDS: Acetaminophen 500 MG Tablet 1000 MG PO (09:33)
[2018-04-04] MEDS: Sertraline 50 MG Tablet PO (09:33)
--- NOTE | 2018-04-04 10:44 | NURSING ---
Reviewed assessment and vitals by Jose
[2018-04-04] MEDS: oxyCODONE 5 MG Tablet PO (11:02)
--- NOTE | 2018-04-04 11:15 | NURSING ---
Assisted Jose with oxycodone administration.
[2018-04-04 12:30] VITALS: BP 139/90; BP 148/94; PULSE 93; TEMP 36.6; O2SAT 98
--- NOTE | 2018-04-04 13:17 | DCINST_ITS ---
Discharge Diet: No Restrictions Discharge Activity: Return to Normal Activity, May Not Drive - for 2 weeks, May not drive while taking narcotic pain medications., May Shower, May Take a Tub Bath - in 7 days. May resume sexual activity in: 4-6 weeks Lifting Restrictions: 20 pounds Additional Activity Instructions:: Nothing in the vagina for 4-6 weeks. You may return to work/school in 6 weeks. Call your doctor if your incision/area has: Continuous Slow Oozing, Sudden Increased Bleeding, Increased Pain/ Swelling, Increased Redness, Foul Smelling Discharge Call your doctor if you observe: Fever of 101 or Higher, Using more than one pad per hour - for 2 hours Suture Line Care: Avoid Pulling/Pushing, Avoid Pinching/Bending Cleanse incision/area with: Keep Dressing Clean & Dry Additional Instructions: If you experience any of the following, contact your healthcare provider. * Bleeding that soaks a pad every hour for 2 hours * Fever 100.4 or higher * Unrelieved incision or abdominal pain * Swelling, redness, discharge or bleeding from your incision or episiotomy site * Your incision begins to separate * Problems urinating (including inability to urinate or burning while urinating) . * Visual changes * Severe headache * Flu-like symptoms * Pain or redness in one of both of your breasts * Pain, warmth, tenderness or swelling in your legs, especially the calf area * Frequent nausea and vomiting * Symptoms of depression or anxiety If you experience any of the following, call 911 or go to the nearest Emergency Room. * Chest pain * Problems breathing * Seizure activity * Partial or complete paralysis of a body part, slurred speech, weakness or drooping of the face, or a sudden inability to walk or hold your balance Allergies/Adverse Reactions: Allergies No Known Allergies Allergy (Verified 03/29/18 22:27) Medications to take at Discharge Famotidine [Pepcid] 10 mg PO DAILY PRN PRN 02/28/18 Zoloft 50 mg PO DAILY 02/28/18 Pediatric Multivit Comb No.42 [Flintstones] 1 each PO DAILY 03/02/18 Labetalol [Trandate (Beta Naa)] 100 mg PO BID #60 tab 04/04/18 Oxycodone HCl/Acetaminophen [Percocet 5/325] 1 - 2 tablet PO Q8 7 Days #20 tablet 04/04/18 The following prescriptions were given: Oxycodone HCl/Acetaminophen [Percocet 5/325] 1 - 2 tablet PO Q8 7 Days #20 tablet Labetalol [Trandate (Beta Naa)] 100 mg PO BID #60 tab Follow-Up: Call to make an appointment with your doctor for an incision check in 1-2 weeks. You will also need a 6 week post- follow up appointment. Please Follow Up With: Mable He MD - Call to make an appointment for an incision check within 1 [phone] When: You will need a post check in 6 weeks. Primary Care Physician: Adelina Tompkins PA [Primary Care Provider] - Proposed Discharge Date: 04/04/18
--- NOTE | 2018-04-04 13:17 | PCM.DC.SUM ---
Discharge Date and Diagnosis - Problem List Patient Problems: Active and Suspected Problems Chronic hypertension affecting (Acute) Pre-eclampsia superimposed on chronic hypertension (Acute) Positive GBS test (Acute) Exposure to herpes simplex virus (HSV) (Acute) Marijuana use (Acute) Date of Admission: 03/30/18 Date of Discharge: 04/04/18 - Primary Discharge Diagnosis Active and Suspected Problems Chronic hypertension affecting (Acute) Pre-eclampsia superimposed on chronic hypertension (Acute) Positive GBS test (Acute) Exposure to herpes simplex virus (HSV) (Acute) Marijuana use (Acute) Hospital Course and Treatment Operations: - - Primary low transverse section Via Pfannenstiel skin incision Summary of Care Provided: The patient is a 32 year old 1 para 0 female who is admitted at 36-2/7 weeks gestation for induction of labor 2 to preeclampsia with severe features. Her was complicated by chronic hypertension as well as maternal obesity with BMI of 49. Patient was admitted for Cytotec followed by Miranda and Pitocin with artificial rupture membranes induction. The induction was approximately 40 hours. On magnesium sulfate for seizure prophylaxis. She also received labetalol. She progressed to 4 cm and had deep variable decelerations and was remote from delivery. She had remained 4 cm for roughly 16 hours. At that time decision was made to proceed with section and patient agreed. The section was performed without difficulty. She had a primary low transverse section Via Pfannenstiel skin incision with a double closure of the uterine incision. The baby was 4 lbs. 12 oz., and had a tight nuchal cord ?2. Postoperatively she remained on magnesium for 24 hours. She was then placed on Procardia. She still has some elevated blood pressures so ultimately she was on Procardia XL 60 mg a day along with labetalol 100 mg p.o. twice daily she is to follow-up in our office within 1 week or as needed. She will check her blood pressures at home. I discussed with her that anti-inflammatories may increase her blood pressure and but she may use them as long as she monitors her blood pressure closely at home. She was given routine prescriptions and instructions. She is to follow-up in our office next week and then for normal 6 week visit or as needed. [] Discharge Diet: No Restrictions Discharge Activity: Return to Normal Activity, May Not Drive - for 2 weeks, May not drive while taking narcotic pain medications., May Shower, May Take a Tub Bath - in 7 days. May resume sexual activity in: 4-6 weeks Additional Activity Instructions:: Nothing in the vagina for 4-6 weeks. You may return to work/school in 6 weeks. Call your doctor if your incision/area has: Continuous Slow Oozing, Sudden Increased Bleeding, Increased Pain/ Swelling, Increased Redness, Foul Smelling Discharge Call your doctor if you observe: Fever of 101 or Higher, Using more than one pad per hour - for 2 hours Suture Line Care: Avoid Pulling/Pushing, Avoid Pinching/Bending Cleanse incision/area with: Keep Dressing Clean & Dry Home Medications: Medications to take at Discharge Famotidine [Pepcid] 10 mg PO DAILY PRN PRN 02/28/18 Zoloft 50 mg PO DAILY 02/28/18 Pediatric Multivit Comb No.42 [Flintstones] 1 each PO DAILY 03/02/18 Labetalol [Trandate (Beta Naa)] 100 mg PO BID #60 tab 04/04/18 Oxycodone HCl/Acetaminophen [Percocet 5/325] 1 - 2 tablet PO Q8 7 Days #20 tablet 04/04/18 Following Prescrptions Were Given to Patient: Oxycodone HCl/Acetaminophen [Percocet 5/325] 1 - 2 tablet PO Q8 7 Days #20 tablet Labetalol [Trandate (Beta Naa)] 100 mg PO BID #60 tab Primary Care Physician: Adelina Tompkins PA [Primary Care Provider] - Please Follow Up With: Mable He MD - Call to make an appointment for an incision check within 1 [phone] When: You will need a post check in 6 weeks. Medical Necessity - Tobacco Use Smoking Status: Former smoker Meaningful Use Info Meaningful Use Diagnoses (Choose all that apply): None applicable
--- NOTE | 2018-04-04 13:25 | PCM.PN.OB ---
Patient Problems: Active and Suspected Problems Chronic hypertension affecting (Acute) Pre-eclampsia superimposed on chronic hypertension (Acute) Positive GBS test (Acute) Exposure to herpes simplex virus (HSV) (Acute) Marijuana use (Acute) Subjective: Denies BLANK or visual changes. No epigastric pain. [place]. po. - Physical Exam General: Alert, Cooperative, No apparent distress Abdomen: Soft, Non-Distended, Tender - appropriately Extremities: Edema - 2+, one beat of clonus, 3+ DTRs Skin: Incision - clean, dry and intact Vital Signs Temp Pulse Resp BP Pulse Ox 97.9 F 93 16 148/94 H 98 04/04/18 12:30 04/04/18 12:30 04/04/18 02:40 04/04/18 12:30 04/04/18 12:30 Oxygen Delivery Method Room Air Weight: [] 34.019 kg Weight: 142.428 kg Body Mass Index (BMI) 49.1 Intake and Output for Last 24 Hours 04/02/18 04/03/18 04/04/18 23:59 23:59 23:59 Output Total 900 / 900 Balance -900 / -900 Medical Necessity - Tobacco Use Smoking Status: Former smoker Assessment/Plan Active and Suspected Problems Chronic hypertension affecting (Acute) Pre-eclampsia superimposed on chronic hypertension (Acute) Positive GBS test (Acute) Exposure to herpes simplex virus (HSV) (Acute) Marijuana use (Acute) POD#4 ready for d/c monitor BP at home f/u within 1 week or prn symptoms of preeclampsia infant doing well
--- NOTE | 2018-04-04 14:08 | NURSING ---
Reviewed patient rounds, focused assessment and vital signs by SN Jose.
[2018-04-04 16:09] VITALS: BP 143/79; PULSE 109; RESP 18; TEMP 36.5; O2SAT 97
--- NOTE | 2018-04-04 16:23 | NURSING ---
mom and dad instructed to call with increas in bp readings, and to go to er or call 911 if sob, dizzy, headache, epigastric pain, blurred vision, voiced understanding, voiced understanding on how to take blood pressure meds,
--- NOTE | 2018-04-11 14:54 | CASEMGMT ---
Social Work Labor and Delivery Unit Patient's drug confirmation test is back and negative for amphetamines, correlating to likely false positive from the blood pressure medication patient was on during . Message left for patient with an update, as patient had asked for this update, to know that the loop has been closed as far needs and concerns. No further needs requested or indicated. -MERCEDES Pollock, INVENTORY COORDINATOR
== END 2018-04-04 17:45 | disposition home or self-care (01) | DRG 765 ==
LOC: WPOUT 07:34 → WP 08:28
PROVIDERS: Advanced Practice Midwife; Obstetrics & Gynecology; Student in an Organized Health Care Education/Training Program; Admitting Provider Obstetrics & Gynecology; Family Provider Physician Assistant Medical; PCP Physician Assistant Medical; Visit Provider Obstetrics & Gynecology
DX: O11.4 Pre-existing hypertension with pre-eclampsia, complicating childbirth (principal); O98.82 Other maternal infectious and parasitic diseases complicating childbirth; Z68.42 Body mass index [BMI] 45.0-49.9, adult; Z37.0 Single live birth; Z3A.36 36 weeks gestation of pregnancy; B95.1 Streptococcus, group B, as the cause of diseases classified elsewhere; O99.324 Drug use complicating childbirth; F12.90 Cannabis use, unspecified, uncomplicated; O76 Abnormality in fetal heart rate and rhythm complicating labor and delivery; O69.1XX0 Labor and delivery complicated by cord around neck, with compression, not applicable or unspecified; O99.214 Obesity complicating childbirth
CPT/HCPCS: 59025; 59050; 80053; 80307; 82565; 84450; 84460; 84550; 85027; 85610; 85730; 86850; 86900; 99218; J7030; J7120; A4216; G0378; J2405; J3490